=== PATIENT | female | born 1965 | race Caucasian/White ===

== ENCOUNTER 2017-01-18 15:14 | Emergency (ER) | payer MEDICAID ==
[~2017-01-18] VITALS: Ht 160 cm; Wt 73.0 kg
[~2017-01-18 15:14] MED LIST: ASPI-986 PO; HUM10VIA9 SQ; METF10002 PO
[2017-01-18 15:21] VITALS: BP 137/68
== END 2017-01-18 19:33 | disposition left against medical advice (07) ==
LOC: ER 16:35
DX: R51 Headache (principal); R11.0 Nausea; Z53.21 Procedure and treatment not carried out due to patient leaving prior to being seen by health care provider